=== PATIENT | female | born 1955 | race Caucasian/White ===

== ENCOUNTER 2018-12-31 11:06 | Day surgery (SDC) | payer OTHER, SELFPAY ==
--- NOTE | 2018-12-29 09:12 | PCM.HP.BLA ---
History and Physical Date of Admission: 12/31/18 Vero Redding a 63 year old female who is referred by Dr. Ma?for an opinion regarding colorectal cancer screening. ?My final recommendations will be communicated back to the requesting physician by way of shared Medical Record. The patient denies?a family?history of colon cancer. ?She tells me that she has been putting off the colonoscopy for as long as possible. ? The patient tells me that Dr Kenny Hardy informed her that he had difficulty with placing her dialysis catheter due to extensive adhesions. ?With her medical history and adhesions, I have recommended MAC sedation. ?? ? The patient saw Dr. Ma on 09/05/18. that note has been reviewed and part as follows: The patient has stage 5 kidney failure. She?does peritoneal dialysis daily at night, has occ issues with feeling bloated after but if she has a good BM that typically helps. ?She is following with Dr. Cowart, Soil Conservation Aide. ?Is taking renvela 800 mg with meals and Lasix 60 mg 1-2 times a day as needed. ?Follows monthly with kidney doctor. ? ? The patient was seen by Dr. Flores?for upper endoscopy and colonoscopy 12/12/06 (due to JEAN-PIERRE). ?The procedure report has been reviewed and findings as follows: EGD FINDINGS: HYPOPHARYNX: The hypopharynx appeared normal. ESOPHAGUS: The esophagus appeared normal. GE-JUNCTION: The gastroesophageal junction appeared normal. STOMACH: The mucosa of the antrum appeared erythematous. ?There are no erosions however. ?A single H. Pylori biopsy was obtained from the antrum and placed on PyloriTek strip. The stomach was otherwise normal. DUODENUM: The duodenum appeared normal. ?Random biopsies were taken to verify the integrity of the intestinal villi. ? Colonoscopy ?PROCEDURE: Rectal exam: Normal sphincter tone. ?Small non-bleeding internal hemorrhoids were present. ?No masses. ?No fissures. ? The endoscope was passed with ease under direct visualization to the cecum confirmed by ileocecal valve. ?The quality of the preparation was excellent. ? FINDINGS: ?In the ascending colon there is a small area where the mucosa is slightly erythematous. ?There is no increased friability here. ?This does not appear as a lesion or mass - simply increased erythema on both sides of the lumen. ?Multiple biopsies were obtained. ?In the transverse colon there was also a mild degree of erythema noted but this is very minimal - random biopsies were also taken therefore from the remainder of the colon. ?The colonoscopy was otherwise normal. ? FINAL DIAGNOSIS 1. DUODENUM, BIOPSY (A) - DUODENAL MUCOSA WITH NO DIAGNOSTIC ALTERATIONS; NO EVIDENCE OF CELIAC SPRUE. 2. ASCENDING COLON, BIOPSY (B) - PATCHY CHRONIC ACTIVE COLITIS; RULE OUT ISCHEMIC COLITIS IN THIS PATIENT WITH DIABETES MELLITUS; SEE COMMENT. 3. RANDOM COLON, BIOPSIES (C) - COLONIC MUCOSA WITH NO DIAGNOSTIC ALTERATIONS. MPB/cb 12/14/2006 COMMENT 2. The differential diagnosis for the chronic active colitis also includes idiopathic inflammatory bowel disease as well as infection. ? The patient was prescribed Asacol. ?No follow up appears to have occurred after that. ? ? I have asked the patient to request her labs from the s3b multi sensor operator be sent for review. ? ? ? Presenting complaint: The patient reports seeing a change in bowel habits since starting her dialysis. She relates it to that, or to the binders that she takes with every meal. ?She denies rectal bleeding or abdominal pain. Having a bowel movement usually twice a day. ??She is trying to eat fresh fruits. Uses Miralax. ? The patient reports some dyspepsia when she starts her dialysis, if she eats too late. She lays on her back and side. Her dialysis catheter is on the left. ?She sleeps in a regular bed with the head of the bed flat. ?? She has a history of gastritis. She has a history of anemia. ??Consider EGD. ? ? REVIEW OF SYSTEMS: GENERAL: No unplanned weight loss. RESPIRATORY: Negative for cough, hemoptysis, wheezing, COPD, dyspnea or shortness of breath CARDIOVASCULAR: Negative for chest pain, leg swelling, hypertension, CHF or palpitations GI: The patient states that her appetite has been good. ?She does?get hungry. There has been no?nausea, no?vomiting. She denies?dysphagia and denies?odynophagia. There has sometimes?been indigestion, as reported above without?heartburn. There has not?been regurgitation. Bowel habits have been regular. There has usually not?been diarrhea. There has not?been constipation - using Miralax. The patient denies?rectal bleeding. There has not?been melena. No abdominal pain. WELDING PROCESS SPECIALIST: Negative for abnormal vaginal bleeding, abnormal vaginal discharge. ? PSYCH: Negative for sleep disturbance, mood disorder and recent psychosocial stressors. HEMATOLOGY/LYMPHOLOGY: Anemia of chronic illness. ? ENDOCRINE: Positive for diabetes mellitus on oral agents NEURO: ?No history of headaches, syncope, paralysis, seizures or tremors All other reviewed and negative other than HPI. ? ? PAST MEDICAL HISTORY PAST MEDICAL HISTORY Diagnosis Date ? Acute gastritis without mention of hemorrhage ? ? Anemia of chronic disease ? ? iron ? Breast cancer, left (HCC) ? ? CKD stage 5 secondary to hypertension (HCC) ? ? Essential hypertension, benign ? ? Internal hemorrhoids without mention of complication ? ? Iron deficiency anemia, unspecified ? ? Mild aortic stenosis by prior echocardiogram ? ? Pure hyperglyceridemia ? ? Type II or unspecified type diabetes mellitus without mention of complication, not stated as uncontrolled ? ? PAST SURGICAL HISTORY PAST SURGICAL HISTORY Procedure Laterality Date ? BREAST BIOPSY W/STEREOTACTIC GUIDANCE Left 05/26/2016 ? COLONOSCOPY W/BX ? 12/12/06 ? EGD W/O BRSH SPECIMEN W/BX ? 12/12/06 ? MAMMO STEREOTACTIC CORE BIOPSY LT ? 05/26/16 ? MASTECTOMY, PARTIAL Left 07/26/2016 ? with prior needle localization ? NONE ? ? ? FAMILY HISTORY FAMILY HISTORY Problem Relation Age of Onset ? Heart Father ?PA ? Stroke Father ? ? Diabetes Sister ? ? Hypertension Sister ? ? Breast Cancer Sister 53 ? Cancer Sister ?Uterin cancer--same sister that had breast cancer. This cancer occured about 5 years after taking tamoxifen. ? Osteoporosis Mother ? ? Cancer Other ?paternal cousin- breast ? CURRENT MEDICATIONS ? Current Outpatient Prescriptions: furosemide (LASIX) 40 mg tablet Take 1.5 tablets by mouth twice daily. Disp: 60 tablet Rfl: 11 amLODIPine (NORVASC) 10 mg tablet Take 1 tablet by mouth once daily. Disp: Rfl: pioglitazone (ACTOS) 15 mg tablet Take 1 tablet by mouth once daily. Disp: 30 tablet Rfl: 11 glipiZIDE (GLUCOTROL XL) 10mg 24 hr tablet Take 1 tablet by mouth twice daily. Disp: 60 tablet Rfl: 11 metoprolol succinate ER (TOPROL XL) 50 mg 24 hr tablet Take 1 tablet by mouth once daily. Disp: 30 tablet Rfl: 11 sevelamer carbonate (RENVELA) 800 mg tablet Take 1 tablet by mouth three times daily with meals. Disp: Rfl: spironolactone (ALDACTONE) 50 mg tablet Take 50 mg by mouth once daily. Disp: Rfl: 2 rosuvastatin (CRESTOR) 20 mg tablet Take 1 tablet by mouth daily at bedtime. Disp: 90 tablet Rfl: 3 Insulin [place], Disposable, (BD ULTRA-FINE CEE PEN NEEDLE) 32 gauge x 5/32 ndle Use one needle for each dose. ?1/day. Disp: 50 Each Rfl: 5 blood sugar diagnostic (BLOOD GLUCOSE TEST) test strip Test blood sugar(s) one times daily. ?Dx: Type 2 DM - Controlled E11.9 ?Insulin: No Disp: 50 Strip Rfl: 11 polyethylene glycol 3350 (MIRALAX) 17 gram packet Take 17 g by mouth twice daily. Disp: Rfl: blood sugar diagnostic (ACCU-CHEK HUNTER) test strip Test blood sugar(s) 1 times daily. ?Dx: 250.00. Insulin: No Disp: 100 Strip Rfl: 3 ? No current facility-administered medications for this visit. ? ? SOCIAL HISTORY: Patient is . She has never smoked and?reports her alcohol use as never. ? ? PHYSICAL EXAMINATION: Blood pressure 148/68, pulse 73, height 160 cm (5' 3), weight 77.7 kg (171 lb 3.2 oz). General Appearance: Well appearing, alert, in no acute distress, well-hydrated, well nourished. Skin: Skin color, texture, turgor normal, no suspicious rashes or lesions. Head: Normocephalic, no masses, lesions or abnormalities. Eyes: Anicteric sclera. Neck: Supple, no adenopathy; thyroid symmetric. Lungs: lungs clear to auscultation. No wheezing, rhonchi, rales. Heart: RRR without murmur. Abdomen: Abdomen soft, ballottement noted. Non-tender. Bowel sounds normal. No masses, organomegaly. Extremities: No deformities, edema. Peripheral Pulses: Normal. Neurologic: Gait normal. Sensation grossly intact. ? ? Impression: Colorectal cancer screening ?2)end stage renal disease ?3)reported severe adhesions in abdomen. history of gastritis - occasional indigestion. ? ? Plan: Will check a CBC if we can't get a recent one from her s3b multi sensor operator. This patient will be scheduled for an upper endoscopy and?colonoscopy. She will be?using GoLytely?as the prep. ?We discussed using MAC sedation and she agrees. The preparation, as well as the procedure, has been explained in detail. The risks, benefits, anticipated outcomes and possible complications were mentioned. I explained the procedure in understandable terms and the patient was given printed material concerning the planned procedure. The patient had the opportunity to ask questions concerning the planned procedure. The patient freely consents to the planned procedure. ? The patient is asked to call with any questions for concerns, or should there be any change in health status between now and the scheduled procedure. ? ? I have personally interviewed and examined this patient. I have read the information the TROMBONE SLIDE ASSEMBLER?documented in this encounter. I spent 30?minutes in the visit, with more than 50% of the total [id number] time of the visit in counseling / coordination of care. ? Juana Bynum RN TECHNICAL WRITING LEAD/MGR.CHIEF CONSTRUCTION INSPECTOR
[2018-12-31 11:29] VITALS: BP 151/71; PULSE 71; RESP 16; TEMP 36.8; O2SAT 99; BMI 30.3
[2018-12-31 11:50] LABS: Bedside Glucose 154 mg/dL (70-110)
--- NOTE | 2018-12-31 12:30 | IMM_PTH ---
PATIENT: FRANDY CHAUDHRY LOC: EN U#:[id number] AGE/SX: 63/F ROOM: RE12/31/[address]: Dr. Sadi Hernandez MD : 1955 BED: DIS: 12/31/2018 SPEC #: [id number] RECD: 01/01/19 10:13 STATUS: SULTANA REBenjamin #: [id number] JESSICA: 12/31/18 12:[address]: Sadi Hernandez DEPT: IMMUNOHISTOCHEMISTRY RECD BY: Kelly Ross ENTERED: 01/01/19 10:14 SP TYPE: IMMUNO OTHR DR: Dr. Jayro Ma MD Tissues: A - Stomach, NOS Procedures: H Pylori (initial) PHYSICIAN & INSTITUTION [place] [id number] SPECIMEN INFORMATION: Tissue Source: A - Antrum biopsy Clinical Info: Anemia Specimen Number: [id number] CPT code: 38394 METHODOLOGY: Deparaffinized sections of prefer/formalin-fixed tissue or PAP/DQ stained slides are incubated with monoclonal/polyclonal antibodies/oligonucleotide probes. Localization is made via biotin free immunoperoxidase method. Appropriate controls are performed and reacted as expected. Results on target cell population are indicated in the following table: RESULTS: ANTIBODY / CLONE RESULT Block A H Pylori (polyclonal) negative These tests were developed and their performance characteristics determined by [facility]. They may not have been cleared or approved by the U.S. Food and Drug Administration. The FDA has determined that such clearance or approval is not necessary. INTERPRETATION: A. Antrum biopsy: Negative for Helicobacter pylori organisms. SJ:garry 01/01/19
--- NOTE | 2018-12-31 12:30 | COLBX_PTH ---
PATIENT: FRANDY CHAUDHRY LOC: EN U#:[id number] AGE/SX: 63/F ROOM: RE12/31/[address]: Dr. Sadi Hernandez MD : 1955 BED: DIS: 12/31/2018 SPEC #: [id number] RECD: 12/31/18 14:48 STATUS: SULTANA REBenjamin #: [id number] JESSICA: 12/31/18 12:[address]: Sadi Hernandez DEPT: SURGICAL PATHOLOGY RECD BY: Chad Markham ENTERED: 12/31/18 15:04 SP TYPE: COLON BX OTHR DR: Dr. Jayro Ma MD Tissues: A - Gastric mucous membrane B - Gastric mucous membrane C - Cecum, NOS Procedures: Surgery Specimen Level IV HEADER OPERATION: Colonoscopy, EGD ([facility] [place] PRE-OP DIAGNOSIS: Anemia TISSUE SUBMITTED: A - Antrum biopsy for H. pylori and path, B - GE junction biopsy, C - Biopsy of cecal polyp MICROSCOPIC DIAGNOSIS A. Antral biopsy: Mild gastritis. See microscopic description and comment. B. GE junction, biopsy: Fragments of squamous epithelium, no pathologic diagnosis. C. Cecal polyp, biopsy: Tubular adenoma. SJ:garry 01/01/19 COMMENT A. The results of immunohistochemistry for Helicobacter pylori will be reported separately ([id number]). MICROSCOPIC DESCRIPTION Slides are reviewed. A. The specimen shows fragments of gastric mucosa with chronic inflammatory cell infiltrates in the lamina propria consisting of lymphocytes and plasma cells, consistent with mild chronic gastritis. GROSS DESCRIPTION A - Received in fixative is one container labeled with the patient's name and designated antrum biopsy. The specimen consists of one irregular fragment of light jules soft tissue that measures 0.3 x 0.3 x 0.1 cm. The specimen is totally submitted in one cassette. B - Received in fixative is one container labeled with the patient's name and designated GE junction biopsy. The specimen consists of two irregular fragments of light jules soft tissue that in aggregate measure 0.4 x 0.2 x 0.1 cm. The specimen is totally submitted in one cassette. C - Received in fixative is one container labeled with the patient's name and designated biopsy of cecal polyp. The specimen consists of one irregular fragment of light jules soft tissue that measures 0.4 x 0.3 x 0.1 cm. The specimen is totally submitted in one cassette. / SJ:rg 12/31/18 TC:1 CPT: 51667 x3
[2018-12-31 13:39] VITALS: BP 142/76; BP 151/71; PULSE 61; RESP 16; TEMP 36.1; O2SAT 99
--- NOTE | 2018-12-31 13:40 | OP.ENDO_ITS ---
12/31/2018 Jayro Ma [address] [place] [address] Re : Upper GI endoscopy procedure for Vero Redding Dear Dr. Ma This procedure was performed on Monday, December 31, 2018. My impressions and recommendations are as follows: Impressions : - A single non-bleeding angioectasia in the jejunum. - Normal. - Normal antrum. Biopsied. - Gastritis. - Normal gastroesophageal junction. Biopsied. Recommendations : - Return to nurse practitioner in 1 week. - Continue present medications. My findings are described in the full procedure note, which is enclosed. If I can be of further assistance, please feel free to contact me at Doctor phone number(s): , Work: . Sincerely, Sadi Hernandez MD 12/31/2018 1:40:00 PM This report has been signed electronically.
--- NOTE | 2018-12-31 13:42 | OP.ENDO_ITS ---
12/31/2018 Jayro Ma [address] [place] [address] Re : Colonoscopy procedure for Vero Redding Dear Dr. Ma This procedure was performed on Monday, December 31, 2018. My impressions and recommendations are as follows: Impressions : - One diminutive polyp in the cecum, removed with a cold biopsy forceps. Resected and retrieved. - Diverticulosis in the sigmoid colon and in the ascending colon. - The examination was otherwise normal. - The distal rectum and anal verge are normal on retroflexion view. Recommendations : - Discharge patient to home. - Resume previous diet. - Continue present medications. - Return to nurse practitioner in 5 weeks. - Repeat colonoscopy is recommended. The colonoscopy date will be determined after pathology results from today's exam become available for review. My findings are described in the full procedure note, which is enclosed. If I can be of further assistance, please feel free to contact me at Doctor phone number(s): , Work: . Sincerely, Sadi Hernandez MD 12/31/2018 1:42:17 PM This report has been signed electronically.
[2018-12-31 13:50] VITALS: BP 140/68; BP 151/71; PULSE 61; RESP 16; O2SAT 100
[2018-12-31 13:56] VITALS: BP 151/68; BP 151/71; PULSE 56; RESP 16; TEMP 36.3; O2SAT 100
[2018-12-31 14:16] VITALS: BP 151/71
== END 2018-12-31 14:45 | disposition home or self-care (01) ==
LOC: EN 11:07 → AC 11:09
PROVIDERS: Family Provider Family Medicine; PCP Family Medicine; Referring Provider Surgery; Visit Provider Surgery
PROC: 0DJD8ZZ Inspection of Lower Intestinal Tract, Via Natural or Artificial Opening Endoscopic (ICD-10-PCS; CPT 45378; principal; 2018-12-31 12:25)
DX: Z12.11 Encounter for screening for malignant neoplasm of colon (principal); K29.70 Gastritis, unspecified, without bleeding; K57.30 Diverticulosis of large intestine without perforation or abscess without bleeding; D12.0 Benign neoplasm of cecum; I12.0 Hypertensive chronic kidney disease with stage 5 chronic kidney disease or end stage renal disease; E11.22 Type 2 diabetes mellitus with diabetic chronic kidney disease; N18.6 End stage renal disease; Z99.2 Dependence on renal dialysis; Z85.3 Personal history of malignant neoplasm of breast; I45.10 Unspecified right bundle-branch block
CPT/HCPCS: 43239; 45380; 82962; 88305; 88342; J7120; J2405

== ENCOUNTER 2020-03-05 19:08 | Observation (INO) | payer OTHER, SELFPAY ==
[2020-03-05 19:09] VITALS: BP 176/55; PULSE 88; RESP 16; TEMP 36.7; O2SAT 97; BMI 30.4
--- NOTE | 2020-03-05 19:27 | EKG12_ITS ---
Test Reason : HIGH POTASSIUM Blood Pressure : / mmHG Vent. Rate : 070 BPM Atrial Rate : 070 BPM P-R Int : 160 ms QRS Dur : 090 ms QT Int : 402 ms P-R-T Axes : 066 013 049 degrees QTc Int : 434 ms Normal sinus rhythm Possible Inferior infarct , age undetermined Poor R wave progression Abnormal ECG Confirmed by RUSLAN HITCHCOCK, FRANCISCA ([id number]), video editor IVONNE SCHMIDT ([id number]) on 03/09/2020 2:21:58 PM Referred By: Nate Hill Confirmed By:FRANCISCA MERCER MD
--- NOTE | 2020-03-05 19:28 | ED.DCSUM_ITS ---
History of Present Illness Chief Complaint: Abn Labs Informant: Patient Onset: Today Narrative: Patient presents with elevated potassium on outpatient labs. Patient has a history of diabetes and peritoneal dialysis. She had routine labs done earlier today that revealed a potassium of 6.1. Patient states that she has been feeling fine. No recent change to her dialysate. - Past Medical History (1) Patient on peritoneal dialysis Status: Chronic (2) Diabetes Status: Chronic (3) Hypertension Status: Chronic (4) Anxiety Status: Chronic Past Medical History - Allergies and Home Meds Allergies/Adverse Reactions: Allergies Sulfa (Sulfonamide Antibiotics) Allergy (Verified 03/05/20 19:10) Rash Primary Care Physician: Jayro Ma MD [Primary Care Provider] - Prior records reviewed: Yes Surgical History: no surgical history Lives: Spouse/ Significant Other Smoking Status: Never smoker Review of Systems General: Denies: Chills, Fever Eyes: Denies: Visual changes - bilaterally ENT: Denies: Bilateral ear pain Cardiovascular: Denies: Chest pain Respiratory: Denies: Dyspnea, Cough Gastrointestinal: Denies: Abdominal pain, Nausea, Vomiting, Diarrhea Genitourinary: Denies: Dysuria Musculoskeletal: Denies: Swelling, Extremity Pain Skin: Denies: Rash Neurological: Denies: Headache Hematologic: Denies: Easy bruising, Easy bleeding Allergy: Denies: Uticaria Physical Exam Vital Signs/Narrative: Vital Signs Temp Pulse Resp BP Pulse Ox 03/05/20 19:09 98.0 F 88 16 176/55 H 97 Inital Vital Signs reviewed: Yes General: Well nourished, Well developed Head: Normocephalic ENT: Moist mucous membranes Neck: Supple Cardiovascular: Regular rate, Regular rhythm Respiratory: No distress, CTA bilaterally Abdomen: Soft, Nontender Skin: Normal color Neurological: Alert, Oriented x3 Psychological: Normal affect Diagnostic/Tx/Re-eval Laboratory Results 03/05/20 03/05/20 19:40 19:40 WBC 7.5 RBC 4.34 Hgb 12.7 Hct 39.7 MCV 91.5 MCH 29.3 MCHC 32.0 RDW Std Deviation 47.8 H RDW Coeff of Grayson 14.1 Plt Count 192 MPV 9.4 Immature Gran % (Auto) 0.700 Neut % (Auto) 70.8 H Lymph % (Auto) 14.6 L [place] % (Auto) 9.8 Eos % (Auto) 3.7 Baso % (Auto) 0.4 Absolute Neuts (auto) 5.3 Absolute Lymphs (auto) 1.10 Nucleated RBC % 0 Sodium 133 L Potassium 6.0 H* Chloride 98 Carbon Dioxide 26.0 Anion Gap 9 BUN 80 H Creatinine 9.01 H* Estim Creat Clear Calc 5.08 Est GFR (MDRD) Af Amer 6 L Est GFR (MDRD) Non-Af 5 L BUN/Creatinine Ratio 8.9 L Glucose 262 H Calcium 9.6 - EKG Initial EKG Interpretation: Sinus Rhythm - Sinus at 70 with no acute ischemia. - Medical Decision Making Labs were repeated and potassium is confirmed at 6.0. I discussed with the patient that she would need admission overnight for treatment of her hyperkalemia. She is ordered Kayexalate, insulin, and glucose here. Patient initially was reluctant to be admitted, but after talking with the patient and having apartment house manager come down she did agree. I will speak with Dr. Cowart, her dean of instruction as well as the hospitalist. ED Disposition - Plan for ED Patient: Disposition: Acute Care Hospital [facility] Diagnosis: Hyperkalemia Referrals: Jayro Ma MD [Primary Care Provider] -
[2020-03-05 20:09] LABS: Absolute Neutrophil Count 5.3 X10^3/uL (2.0-7.7); Basophil# 0.03 X10^3/uL; Basophil% 0.4 % (0-1); Eosinophil# 0.28 X10^3/uL; Eosinophils% 3.7 % (0-5); Hematocrit 39.7 % (37-47); Hemoglobin 12.7 g/dL (12.0-15.0); Lymphocyte % 14.6 % (19-41); Mean Corpuscular Hgb 29.3 pg (27.0-32.0); Mean Corpuscular Volume 91.5 fL (81-99); Mean Platelet Vol. 9.4 fl (6.2-12.0); Monocyte# 0.74 X10^3/uL; Monocyte% 9.8 % (0-10); NRBC Flagged by Analyzer 0 % (0-5); Neutrophil # 5.32 X10^3/uL (2.7-7.7); Neutrophil % 70.8 % (47-70); Platelet Count 192 K/mm3 (150-450); RBC Distribution Width CV 14.1 % (11.6-14.6); RBC Distribution Width SD 47.8 fl (35.1-43.9); Red Blood Count 4.34 M/mm3 (4.2-5.4); White Blood Count 7.5 K/mm3 (4.4-11.0)
--- NOTE | 2020-03-05 20:48 | ED.RN ---
notified Dr. Lr of abnormal labs
[2020-03-05 20:50] LABS: Anion Gap 9 (5-15); BUN 80 mg/dL (7-18); BUN/Creat Ratio 8.9 RATIO (10-20); Calcium,Total 9.6 mg/dL (8.5-10.1); Chloride 98 mmol/L (98-107); Creatinine, Serum 9.01 mg/dL (0.55-1.02); EST Glomerular Filtration Rate 5 mL/min (>60); Est Glom Filt Rate - Afr Amer 6 mL/min (>60); Estimated Creatinine Clearance 5.08 ml/min; Glucose 262 mg/dL (74-106); Sodium Level 133 mmol/L (136-145)
[2020-03-05] MEDS: Insulin Lispro 5 UNIT in Syringe 0 ML 3 UNIT IV (21:23)
[2020-03-05] MEDS: Dextrose 50%-Water 25 GM/50 ML DISP.SYRIN IV (21:23)
--- NOTE | 2020-03-05 21:26 | PCM.HP.STD ---
Problem List (1) Hyperkalemia Status: Acute (2) Patient on peritoneal dialysis Status: Chronic (3) Diabetes Status: Chronic (4) Hypertension Status: Chronic (5) Anxiety Status: Chronic (6) End stage renal disease Status: Chronic History of Present Illness Date of Admission: 03/05/20 Chief Complaint: Hyperkalemia on outpatient lab. The patient is a 64 year old F with a significant history of diabetes mellitus; end-stage renal disease on dialysis; who presents to the emergency department with hyperkalemia on routine outpatient lab. Potassium outpatient was 6.1. She denies any symptoms. At the emergency department her potassium was 6.0. Emergent department doctor discussed the case with patient biology internship Dr. Shaw who will follow. Past Medical History Past Medical History (Chronic Problems): Chronic Problems (Last Reviewed 03/05/20 @ 22:[address] Nate Hill MD) Patient on peritoneal dialysis (Chronic) Diabetes (Chronic) Hypertension (Chronic) Anxiety (Chronic) End stage renal disease (Chronic) Medical History: Medical History (Last Reviewed 03/05/20 @ 22:[address] Nate Hill MD) Chronic renal failure, stage 4 (severe) (Acute) N18.4 Anemia D64.9 Anxiety disorder F41.9 Breast cancer C50.919 Diabetes mellitus E11.9 Normal colonoscopy HTN (hypertension) I10 Allergies Sulfa (Sulfonamide Antibiotics) Allergy (Verified 03/05/20 19:10) Rash Home Medications: Ambulatory Orders Medication Instructions Recorded Amlodipine Besylate [Norvasc] 10 mg PO DAILY 09/29/17 Furosemide [Lasix] 40 mg PO DAILY 09/29/17 Pioglitazone [Actos] 30 mg PO DAILY 09/29/17 Rosuvastatin Calcium [Crestor] 20 mg PO DAILY 09/29/17 glipiZIDE XL [Glucotrol Xl] 10 mg PO BID 09/29/17 Sevelamer Carbonate [Renvela] 3 tab PO TID 12/28/18 Spironolactone [Aldactone] 50 mg PO DAILY 12/28/18 Surgical History: Surgical History (Last Reviewed 03/05/20 @ 22:[address] Nate Hill MD) Peritoneal dialysis catheter in place Z99.2 Status post left breast lumpectomy Z98.890 Lives: Spouse/ Significant Other Smoking Status: Never smoker Alcohol: None - *Family History Maternal Family History: Family History (Last Reviewed 03/05/20 @ 22:[address] Nate Hill MD) Father CVA (cerebral vascular accident) Diabetes Heart disease Sister Breast cancer Review of Systems Constitutional: Denies: Chills, Fever, Weight Change HEENT: Denies: Head Aches, Sinus Congestion, Sinus Drainage Cardiovascular: Denies: Chest Pain, Palpitations Respiratory: Denies: Cough, Shortness of breath at rest, Sputum production Gastrointestinal: Denies: Abdominal Pain, Nausea, Vomiting Genitourinary: Denies: Dysuria Musculoskeletal: Denies: Joint Pain, Joint Tenderness Skin: Denies: Rash, Wounds Neurological: Denies: Numbness, Tingling, Focal weakness Psychiatric: Denies: Anxiety, Depression, Homicidal Ideations, Suicidal Ideations Hematologic/ Lymphatic: Denies: Easy Bruising, Easy Bleeding VTE Information - Inpt Only VTE Present on Admission: No VTE Mechan Device Prophylaxis: None VTE Pharm Prophylaxis ordered?: Yes Patient Problems: Active and Suspected Problems (Last Reviewed 03/05/20 @ 22:[address] Nate Hill MD) Hyperkalemia (Acute) - Physical Exam Vitals/I&O's: Vital Signs Temp Pulse Resp BP Pulse Ox 98.0 F 88 16 176/55 H 97 03/05/20 19:09 03/05/20 19:09 03/05/20 19:09 03/05/20 19:09 03/05/20 19:09 Oxygen Delivery Method Room Air Weight: 78.018 kg Body Mass Index (BMI) 30.4 Finger Stick Blood Glucose 233 General: Alert, Oriented x3, Cooperative HEENT: Atraumatic, PERRLA, EOMI, Normocephalic Neck: Supple, No JVD, Negative Carotid Bruits Lungs: Clear to auscultation, Normal air movement, No rhonchi, No wheeze, No rales Cardiovascular: Regular rate, Regular Rhythm, Normal S1, Normal S2, No murmurs Abdomen: Bowel Sounds Present, Soft, Non Tender Extremities: No edema, Capillary Refill Less than 3 Seconds Skin: No rashes, No breakdown Musculoskeletal: No Tenderness to Palpation of Joints or Extremities Neurological: Cranial nerves II-XII grossly intact Psych/Mental Status: Normal Affect, Appropriate Laboratory Results 03/05/20 19:40: WBC 7.5, RBC 4.34, Hgb 12.7, Hct 39.7, MCV 91.5, MCH 29.3, MCHC 32.0, RDW Std Deviation 47.8 H, RDW Coeff of [place] 14.1, Plt Count 192, MPV 9.4, Immature Gran % (Auto) 0.700, Neut % (Auto) 70.8 H, Lymph % (Auto) 14.6 L, [place] % (Auto) 9.8, Eos % (Auto) 3.7, Baso % (Auto) 0.4, Absolute Neuts (auto) 5.3, Absolute Lymphs (auto) 1.10, Nucleated RBC % 0 03/05/20 19:40: Sodium 133 L, Potassium 6.0 H*, Chloride 98, Carbon Dioxide 26.0, Anion Gap 9, BUN 80 H, Creatinine 9.01 H*, Estim Creat Clear Calc 5.08, Est GFR (MDRD) Af Amer 6 L, Est GFR (MDRD) Non-Af 5 L, BUN/Creatinine Ratio 8.9 L, Glucose 262 H, Calcium 9.6 Assessment/Plan All Active Problems (Last Reviewed 03/05/20 @ 22:[address] Nate Hill MD) Hyperkalemia (Acute) Chronic renal failure, stage 4 (severe) (Acute) The patient is a 64 year old F with a significant history of diabetes mellitus; end-stage renal disease on dialysis; diabetes mellitus with hyperkalemia. Hyperkalemia Outpatient potassium of 6.1 and 6.0 at the emergency department. Insulin and dextrose was given at the emergency department. Kayexalate ordered at emergency department. MiraLAX ordered. Nephrology consult. BMP in a.m. End Stage disease on dialysis Likely secondary to hypertensive nephrosclerosis and diabetes mellitus Aldactone and Lasix continued. Low potassium and low phosphate diet. Sevelamer continued. Nephrology consult. Hypertensive urgency Patient blood pressure of 183/66. Continue home blood pressure medication. Add hydralazine as needed. Trend blood pressure and adjust as necessary. Diabetes mellitus with hyperglycemia Hyperglycemia on presentation. Actos and glipizide continued. Accu-Chek QA CHS with correction scale insulin ordered. DVT prophylaxis Subcutaneous heparin. OBSV E&M: 58442 Initial observation care L3
[2020-03-05 21:31] VITALS: BP 183/66; PULSE 75; RESP 18; O2SAT 96
[2020-03-05] MEDS: Sodium Polystyrene Sulfonate 15 GM/60 ML UDC 45 GM PO (21:52)
[2020-03-05 21:56] VITALS: BP 183/66; PULSE 88; RESP 14; TEMP 37; O2SAT 100
[2020-03-05 22:06] VITALS: BP 170/69; PULSE 80; RESP 17; TEMP 36.4; O2SAT 94
[2020-03-05 22:07] VITALS: BMI 31.4
[2020-03-05 22:13] VITALS: BMI 31.4
[2020-03-05 22:15] VITALS: PULSE 77
[2020-03-05] MEDS: Polyethylene Glycol 3350 17 GM PACKET PO (22:51)
[2020-03-05] MEDS: glipiZIDE XL 5 MG Tablet 10 MG PO (22:52)
[2020-03-05] MEDS: Heparin Injection (Vial) 5,000 UNIT/ML VIAL 5000 UNIT SC (22:52)
[2020-03-05 23:10] VITALS: O2SAT 96
[2020-03-06 00:32] VITALS: BP 165/71; PULSE 79; RESP 16; TEMP 36.6; O2SAT 96
[2020-03-06 00:33] VITALS: BP 165/71; PULSE 79
[2020-03-06] MEDS: hydrALAZINE 20 MG/ML Vial 5 MG IV (00:33)
[2020-03-06 03:00] VITALS: PULSE 79
[2020-03-06 05:58] VITALS: BP 159/68; PULSE 78; RESP 16; TEMP 36.9; O2SAT 93
[2020-03-06] MEDS: Heparin Injection (Vial) 5,000 UNIT/ML VIAL 5000 UNIT SC (06:00)
[2020-03-06 06:51] LABS: Bedside Glucose 137 mg/dL (70-110)
[2020-03-06 07:19] LABS: Anion Gap 8 (5-15); BUN 87 mg/dL (7-18); BUN/Creat Ratio 9.8 RATIO (10-20); Calcium,Total 9.2 mg/dL (8.5-10.1); Chloride 101 mmol/L (98-107); Creatinine, Serum 8.88 mg/dL (0.55-1.02); EST Glomerular Filtration Rate 5 mL/min (>60); Est Glom Filt Rate - Afr Amer 6 mL/min (>60); Estimated Creatinine Clearance 5.16 ml/min; Glucose 152 mg/dL (74-106); Potassium 5.2 mmol/L (3.5-5.1); Sodium Level 134 mmol/L (136-145)
[2020-03-06 07:26] VITALS: PULSE 76
[2020-03-06 07:30] VITALS: O2SAT 94
[2020-03-06] MEDS: Pioglitazone Hydrochloride 30 MG Tablet PO (09:51)
[2020-03-06] MEDS: glipiZIDE XL 5 MG Tablet 10 MG PO (09:51)
[2020-03-06] MEDS: SEVELAMER CARBONATE 800 MG TABLET 2400 MG PO (09:51)
[2020-03-06] MEDS: Spironolactone 50 MG Tablet PO (09:52)
[2020-03-06] MEDS: Furosemide 40 MG Tablet PO (09:52)
[2020-03-06] MEDS: amLODIPine 10 MG Tablet PO (09:52)
--- NOTE | 2020-03-06 11:07 | DCINST_ITS ---
- Discharge Diagnoses Current Active Problems: Current Active and Chronic Problems (Last Reviewed 03/05/20 @ 22:[address] Nate Hill MD) Hyperkalemia (Acute) End stage renal disease (Chronic) Reason(s) for Visit for Discharge Instructions: Hyperkalemia You will use the following diet at home:: Renal (restricted protein/sodium) Your food should be the consistency of: Regular Your liquids should be the consistency of: Regular/Thin Discharge Activity: Return to Normal Activity Additional Instructions: Continue to do your peritoneal dialysis. You should follow-up with your study hall supervisor as scheduled. Allergies/Adverse Reactions: Allergies Sulfa (Sulfonamide Antibiotics) Allergy (Verified 03/05/20 19:10) Rash Medications to take at Discharge Amlodipine Besylate [Norvasc] 10 mg PO DAILY 09/29/17 Furosemide [Lasix] 40 mg PO DAILY 09/29/17 Pioglitazone [Actos] 30 mg PO DAILY 09/29/17 Rosuvastatin Calcium [Crestor] 20 mg PO DAILY 09/29/17 glipiZIDE XL [Glucotrol Xl] 10 mg PO BID 09/29/17 Sevelamer Carbonate [Renvela] 3 tab PO TID 12/28/18 Spironolactone [Aldactone] 50 mg PO DAILY 12/28/18 Primary Care Physician: Jayro Ma MD [Primary Care Provider] - Please follow up with your Primary Care Physician in: within 1-2 weeks Test Results: Test results from this visit will be discussed in further detail at your follow- up appointment, if applicable. Proposed Discharge Date: 03/06/20
--- NOTE | 2020-03-06 11:09 | DS.PCM_ITS ---
Discharge Date and Diagnosis Date of Admission: 03/05/20 Date of Discharge: 03/06/20 - Primary Discharge Diagnosis Active and Suspected Problems (Last Reviewed 03/05/20 @ 22:[address] Nate Hill MD) Hyperkalemia (Acute) - Secondary Discharge Diagnosis Chronic Problems (Last Reviewed 03/05/20 @ 22:[address] Nate Hill MD) Patient on peritoneal dialysis (Chronic) Diabetes (Chronic) Hypertension (Chronic) Anxiety (Chronic) End stage renal disease (Chronic) Hospital Course and Treatment Operations: None Procedures: None Summary of Care Provided: The patient is a 64 year old F past medical history of ESRD on peritoneal dialysis who presented with hyperkalemia noticed in the outpatient urine routine labs. Patient potassium was 6.1 in the outpatient and was 6.0 when he came here. Denied any acute complaints. Her vitals were stable. He received Kayexalate in the emergency department and insulin with dextrose also. Repeat potassium the next day was 5.2. Discussed with the patient's primary cutter grinder operator who has been following closely with the patient outpatient. Patient's potassium has reportedly been slightly elevated recently.and recommended discharge. Patient will resume her peritoneal dialysis on the day of discharge. Follow-up as scheduled with your primary cutter grinder operator. Subjective: On the day of discharge, patient was seen and examined. She felt improved. Denied any active complaints. Objective: Physical exam: General: Alert, Oriented x3, Cooperative HEENT: Atraumatic, PERRLA, EOMI, Normocephalic Neck: Supple, No JVD, Negative Carotid Bruits Lungs: Clear to auscultation, Normal air movement, No rhonchi, No wheeze, No rales Cardiovascular: Regular rate, Regular Rhythm, Normal S1, Normal S2, No murmurs Abdomen: Bowel Sounds Present, Soft, Non Tender Extremities: No edema, Capillary Refill Less than 3 Seconds Skin: No rashes, No breakdown Musculoskeletal: No Tenderness to Palpation of Joints or Extremities Neurological: Cranial nerves II-XII grossly intact Psych/Mental Status: Normal Affect, Appropriate - Physical Exam Vitals/I&O's: Vital Signs Temp Pulse Resp BP Pulse Ox 98.5 F 76 16 159/68 H 94 03/06/20 05:58 03/06/20 07:26 03/06/20 05:58 03/06/20 05:58 03/06/20 07:30 Oxygen Delivery Method Room Air Weight: 80.5 kg Body Mass Index (BMI) 31.4 Finger Stick Blood Glucose 233 Intake and Output for Last 24 Hours 03/04/20 03/05/20 03/06/20 23:59 23:59 23:59 Intake Total 75.05 / 75.05 75 / 75 Balance 75.05 / 75.05 75 / 75 Laboratory Results 03/05/20 19:40: WBC 7.5, RBC 4.34, Hgb 12.7, Hct 39.7, MCV 91.5, MCH 29.3, MCHC 32.0, RDW Std Deviation 47.8 H, RDW Coeff of [place] 14.1, Plt Count 192, MPV 9.4, Immature Gran % (Auto) 0.700, Neut % (Auto) 70.8 H, Lymph % (Auto) 14.6 L, [place] % (Auto) 9.8, Eos % (Auto) 3.7, Baso % (Auto) 0.4, Absolute Neuts (auto) 5.3, Absolute Lymphs (auto) 1.10, Nucleated RBC % 0 03/05/20 19:40: Sodium 133 L, Potassium 6.0 H*, Chloride 98, Carbon Dioxide 26.0, Anion Gap 9, BUN 80 H, Creatinine 9.01 H*, Estim Creat Clear Calc 5.08, Est GFR (MDRD) Af Amer 6 L, Est GFR (MDRD) Non-Af 5 L, BUN/Creatinine Ratio 8.9 L, Glucose 262 H, Calcium 9.6 03/06/20 06:15: Sodium 134 L, Potassium 5.2 H, Chloride 101, Carbon Dioxide 25.0, Anion Gap 8, BUN 87 H, Creatinine 8.88 H*, Estim Creat Clear Calc 5.16, Est GFR (MDRD) Af Amer 6 L, Est GFR (MDRD) Non-Af 5 L, BUN/Creatinine Ratio 9.8 L, Glucose 152 H, Calcium 9.2 03/06/20 06:35: POC Glucose 137 H Current Medications Amlodipine Besylate (Norvasc) 10 mg PO DAILY ALANNA Last Admin: 03/06/20 09:52 Dose: 10 mg Documented by: Atorvastatin Calcium (Lipitor) 40 mg PO DAILY@2200 [facility] Dextrose (D50w Syringe) 0 gm IV X1 PRN; Protocol PRN Reason: Hypoglycemia Furosemide (Lasix) 40 mg PO DAILY [facility] Last Admin: 03/06/20 09:52 Dose: 40 mg Documented by: Glipizide (Glucotrol Xl) 10 mg PO BIDCM [facility] Last Admin: 03/06/20 09:51 Dose: 10 mg Documented by: Glucagon () 1 mg IM .X1 PRN PRN Reason: Hypoglycemia Heparin Sodium (Porcine) (Heparin Na) 5,000 unit SC Q8 [facility] Last Admin: 03/06/20 06:00 Dose: 5,000 unit Documented by: Hydralazine HCl (Apresoline Iv) 5 mg IV Q4H PRN PRN PRN Reason: SBP> 160 Last Admin: 03/06/20 00:33 Dose: 5 mg Documented by: Sodium Chloride () 250 mls @ 15 mls/hr IV .[id number] PRN PRN Reason: Saline Flush Sodium Chloride () 250 mls @ 15 mls/hr IV .[id number] PRN PRN Reason: Additional IVPB Infusion Insulin Human Lispro (Humalog Kwikpen (Bkc)) 0 unit SC ACHS [facility]; Protocol Last Admin: 03/06/20 06:52 Dose: Not Given Documented by: Pioglitazone HCl (Actos) 30 mg PO DAILY [facility] Last Admin: 03/06/20 09:51 Dose: 30 mg Documented by: Sevelamer Carbonate (Renvela) 2,400 mg PO TIDCM [facility] Last Admin: 03/06/20 09:51 Dose: 2,400 mg Documented by: Sodium Chloride () 10 - 40 ml IV UD PRN PRN Reason: SALINE FLUSH Spironolactone (Aldactone) 50 mg PO DAILY [facility] Last Admin: 03/06/20 09:52 Dose: 50 mg Documented by: Discharge Diet: Renal Diet Discharge Activity: Return to Normal Activity Home Medications: Medications to take at Discharge Amlodipine Besylate [Norvasc] 10 mg PO DAILY 09/29/17 Furosemide [Lasix] 40 mg PO DAILY 09/29/17 Pioglitazone [Actos] 30 mg PO DAILY 09/29/17 Rosuvastatin Calcium [Crestor] 20 mg PO DAILY 09/29/17 glipiZIDE XL [Glucotrol Xl] 10 mg PO BID 09/29/17 Sevelamer Carbonate [Renvela] 3 tab PO TID 12/28/18 Spironolactone [Aldactone] 50 mg PO DAILY 12/28/18 Primary Care Physician: Jayro Ma MD [Primary Care Provider] - Please follow up with your Primary Care Physician in: within 1-2 weeks Disposition: Home Minutes spent on discharge:: 35 Patient Condition:: Stable Medical Necessity - Tobacco Use Smoking Status: Never smoker Tobacco Use: Non-smoker Meaningful Use Info Meaningful Use Diagnoses (Choose all that apply): None applicable OBSV E&M: 17435 Observation care discharge
[2020-03-06] MEDS: Insulin Lispro 100 UNIT/ML INSULN.PEN SC (11:19)
[2020-03-06 11:21] LABS: Bedside Glucose 196 mg/dL (70-110)
== END 2020-03-06 11:05 | disposition home or self-care (01) ==
LOC: ED 21:25 → PCU 21:42
PROVIDERS: Admitting Provider Hospitalist; Emergency Provider Emergency Medicine; PCP Family Medicine; Referring Provider Hospitalist; Visit Provider Internal Medicine
DX: E87.5 Hyperkalemia (principal); E11.22 Type 2 diabetes mellitus with diabetic chronic kidney disease; I12.0 Hypertensive chronic kidney disease with stage 5 chronic kidney disease or end stage renal disease; N18.6 End stage renal disease; F41.9 Anxiety disorder, unspecified; Z79.899 Other long term (current) drug therapy; Z79.84 Long term (current) use of oral hypoglycemic drugs; Z99.2 Dependence on renal dialysis; I16.0 Hypertensive urgency; E11.65 Type 2 diabetes mellitus with hyperglycemia
CPT/HCPCS: 36415; 80048; 82962; 85025; 93005; 96372; 96374; 96375; 99218; 99285; A4216; G0378

== ENCOUNTER 2020-06-17 10:55 | Day surgery (SDC) | payer MEDICARE, OTHER, SELFPAY ==
--- NOTE | 2020-06-16 16:39 | HP.PCM_ITS ---
History and Physical Date of Admission: 06/17/20 HISTORY AND PHYSICAL ? Vero Redding 1955 ? REFERRING PHYSICIAN: Jayro Ma MD ? CHIEF COMPLAINT: Anemia ? HPI: The patient is a 64 year old female referred for endoscopy. Vero notes anemia and heme positive stool. Patient denies any change in bowel habits, weight changes, or abdominal pain. Denies family history of colon issues. The patient notes no upper GI complaints. Vero has undergone prior endoscopy. ? Patient was referred by Dr. Shaw's office when she was found to have a hemoglobin of 7.3 on recent labs. Another CBC from 05/26/2020 showed hemoglobin 7.6, and repeat within the last few days showed hemoglobin 7.9. She had hemoccult testing which was positive. Denies any fatigue or dizziness. ? Patient's past medical history is significant for chronic kidney disease, hypertension, history of breast cancer, type II diabetes mellitus. ? Denies problems with sedation in the past. ? ? PAST MEDICAL HISTORY ? Acute gastritis without mention of hemorrhage ? ? Anemia of chronic disease ? ? iron ? Breast cancer, left (HCC) ? ? CKD stage 5 secondary to hypertension (HCC) ? ? Essential hypertension, benign ? ? Internal hemorrhoids without mention of complication ? ? Iron deficiency anemia, unspecified ? ? Mild aortic stenosis by prior echocardiogram ? ? Pure hyperglyceridemia ? ? Type II or unspecified type diabetes mellitus without mention of complication, not stated as uncontrolled ? PAST SURGICAL HISTORY ? BREAST BIOPSY W/STEREOTACTIC GUIDANCE Left 05/26/2016 ? COLONOSCOPY W/BX ? 12/12/06 ? EGD W/O [facility] SPECIMEN W/BX ? 12/12/06 ? MAMMO STEREOTACTIC CORE BIOPSY LT ? 05/26/16 ? MASTECTOMY, PARTIAL Left 07/26/2016 ? with prior needle localization ? NONE ? ? ? CURRENT MEDICATIONS ? furosemide (LASIX) 40 mg tablet Take 2 tablets by mouth twice daily. ? blood sugar diagnostic (BLOOD GLUCOSE TEST) test strip Test blood sugar(s) one times daily. Dx: Type 2 DM - Controlled E11.9 Insulin: No ? amLODIPine (NORVASC) 10 mg tablet Take 1 tablet by mouth once daily. ? spironolactone (ALDACTONE) 50 mg tablet Take 1 tablet by mouth once daily. ? pioglitazone (ACTOS) 45 mg tablet Take 1 tablet by mouth once daily. ? rosuvastatin (CRESTOR) 20 mg tablet Take 1 tablet by mouth daily at bedtime. ? glipiZIDE (GLUCOTROL XL) 10mg 24 hr tablet Take 1 tablet by mouth twice daily. ? metoprolol succinate ER (TOPROL XL) 50 mg 24 hr tablet Take 1 tablet by mouth once daily. ? sevelamer carbonate (RENVELA) 800 mg tablet Take 1 tablet by mouth three times daily with meals. ? Insulin Line [place], Disposable, (BD ULTRA-FINE CEE PEN NEEDLE) 32 gauge x ndle Use one needle for each dose. 1/day. ? polyethylene glycol 3350 (MIRALAX) 17 gram packet Take 17 g by mouth twice daily. ? ? ALLERGIES: Sulfa (Sulfonamide Antibiotics) ? PERSONAL HISTORY: SOCIAL HISTORY Social History ?Tobacco Use ? Smoking status: Never Smoker ? Smokeless tobacco: Never Used Substance Use Topics ? Alcohol use: No ? Drug use: No ? FAMILY HISTORY: ? Osteoporosis Mother ? ? Heart Father ? ? OR ? Stroke Father ? ? Diabetes Sister ? ? Hypertension Sister ? ? Breast Cancer Sister 53 ? Cancer Sister ? ? Uterin cancer--same sister that had breast cancer. This cancer occured about 5 years after taking tamoxifen. ? Cancer Other ? ? paternal cousin- breast ? ? REVIEW OF SYMPTOMS: The review of systems data was entered by the nurse and reviewed by me ? Nursing Notes: Roberto Mantilla 06/04/2020 9:05 AM Signed REVIEW OF SYSTEMS: General: The patient NOTES fatigue, denies weight loss, denies weight gain, denies feeling hot, and NOTES feelings of cold. Eyes: The patient denies glaucoma, denies eye injury/surgery, wears glasses or contacts. Ear/Nose/Throat: The patient NOTES allergies, denies hayfever, denies ear infections, and denies bloody noses. Cardiovascular: The patient denies chest pain, denies heart disease, NOTES high blood pressure,denies cardiac stent, denies prior heart attack, denies irregular heart beat, denies high cholesterol, denies poor circulation, denies heart failure, other cardiac issues, denies claudication, denies cold feet, denies peripheral arterial stent. Respiratory: The patient denies tuberculosis, denies pneumonia, denies frequent cough, denies pulmonary embolism, denies shortness of breath, and denies coughing up blood. Gastrointestinal: The patient denies difficulty swallowing, denies acid reflux, denies ulcers, denies vomiting, denies jaundice/hepatitis, denies gallbladder problems, denies black or tarry stools, denies hemorrhoids, denies bleeding from rectum, denies diverticulitis, denies constipation, denies diarrhea, denies loss of stool control, and denies hernias. Kidney/Bladder: The patient denies kidney stones, denies urine infections, and denies bloody urine. Skin: The patient denies a history of skin cancer, denies bleeding/changing moles, and denies a history of skin rash. Neurologic: The patient denies a history of epilepsy/convulsions, denies headaches, denies head/spinal injuries, and denies stroke/TIA. Psychiatric: The patient denies psychiatric medications, denies depression, and denies voices, denies substance abuse. Endocrine: The patient denies thyroid disorders, NOTES diabetes, and denies hormonal problems. Hematologic: The patient NOTES a history of bruising, denies bleeding, and denies anemia, denies blood clots. Infections: The patient denies a history of measles and mumps, denies rheumatic fever, and denies sexually transmitted diseases. Musculoskeletal: The patient denies back pain/injury, denies back problems, denies sciatica, denies knee/foot trouble, denies arthritis, or denies gout. ? ? When was patient's last Mammogram screening? 09-11-2018 ? Last Colonoscopy: 12-12-2006 ? Roberto Mantilla I have confirmed and edited as necessary, the PFSH and ROS obtained by others. ? PHYSICAL EXAMINATION: ? General: The patient is 64 year old female, well nourished, well hydrated in no acute distress. The patient is oriented to time, place, and person. ? VITALS: Blood pressure 160/58, pulse 81, temperature 36.7 ?C (98 ?F), temperature source Temporal, resp. rate 14, height 160 cm (5' 3), weight 80.7 kg (178 lb), SpO2 100 %. Body mass index is 31.53 kg/m?. ? HEENT: Normal cephalic, ataumatic, pupils are equally round, sclera are anicteric, mucous membranes are moist, oropharynx is clear. Neck has no masses, asymmetry or lymphadenopathy. ? Respiratory: Clear to auscultation and percussion. Normal respiratory excursion and pattern. ? Cardiac: Examination is regular rate and rhythm. Normal S1/S2 ? Abdominal exam: Soft, nontender, with no palpable masses. No hepatosplenomegaly. No palpable hernias. ? Extremities: no clubbing, cyanosis or edema. No adenopathy. ? LABORATORY VALUES: As Noted ? RADIOLOGIC STUDIES: As Noted ? IMPRESSION: anemia, recommend upper and lower endoscopy to evaluate for possible GI source of blood loss ? PLAN: I have reviewed my findings with the surgeon. Will plan for upper and lower endoscopy. We discussed the risks and benefits of the planned endoscopy. I have informed the patient that complications can occur including failure to complete the endoscopy and perforation. The patient had the opportunity to ask questions concerning the planned endoscopy. My staff has also explained the procedure to the patient in understandable terms and has given the patient printed material concerning the procedure. The patient freely consents to surgery. ? I plan to use Golytely bowel preparation. Reviewed instructions and importance of good hydration ? Patient instructed to contact PCP for instructions regarding diabetic medication, which may require adjustment during bowel preparation and/or day of procedure ? ? We will plan for Monitored Anesthetic Care. ? Reviewed red flag signs and symptoms such as dark stools, hematemesis, abdominal pain, dizziness or rapid heartbeat for which patient should seek immediate medical attention ? Patient verbalized understanding of all above and agreed with the plan. ? Lisa Rivera PA-C
[2020-06-17] VITALS (7 sets, daily range): BP systolic 106–147; BP diastolic 55–65; PULSE 60–69; RESP 15–16; TEMP 36.2–36.8; O2SAT 99–100; BMI 30.9
[2020-06-17] MEDS: 0.9% Normal Saline 1,000 ML 30 ML IV (11:38)
[2020-06-17 11:45] LABS: Bedside Glucose 94 mg/dL (70-110)
--- NOTE | 2020-06-17 12:00 | IMM_PTH ---
PATIENT: FRANDY CHAUDHRY LOC: EN U#:[id number] AGE/SX: 64/F ROOM: RE06/17/[address]: Dr. Annalee Nixon MD : 1955 BED: DIS: 06/17/2020 SPEC #: [id number] RECD: 06/18/20 09:52 STATUS: SULTANA REQ #: [id number] JESSICA: 06/17/20 12:[address]: Annalee Nixon DEPT: IMMUNOHISTOCHEMISTRY RECD BY: Kelly Ross ENTERED: 06/18/20 09:52 SP TYPE: IMMUNO OTHR DR: Dr. Jayro Ma MD Tissues: Stomach, NOS Procedures: H Pylori (initial) PHYSICIAN & INSTITUTION [place] [id number] SPECIMEN INFORMATION: Tissue Source: Antrum biopsy Clinical Info: Anemia Specimen Number: [id number] CPT code: 53839 METHODOLOGY: Deparaffinized sections of prefer/formalin-fixed tissue or PAP/DQ stained slides are incubated with monoclonal/polyclonal antibodies/oligonucleotide probes. Localization is made via biotin free immunoperoxidase method. Appropriate controls are performed and reacted as expected. Results on target cell population are indicated in the following table: RESULTS: ANTIBODY / CLONE RESULT H Pylori (polyclonal) negative These tests were developed and their performance characteristics determined by [facility]. They may not have been cleared or approved by the U.S. Food and Drug Administration. The FDA has determined that such clearance or approval is not necessary. INTERPRETATION: Antrum biopsy: Negative for Helicobacter pylori organisms. AM:garry 06/19/20
--- NOTE | 2020-06-17 12:00 | EGD_PTH ---
PATIENT: FRANDY CHAUDHRY LOC: EN U#:[id number] AGE/SX: 64/F ROOM: RE06/17/[address]: Dr. Annalee Nixon MD : 1955 BED: DIS: 06/17/2020 SPEC #: [id number] RECD: 06/17/20 13:57 STATUS: SULTANA MALGORZATA #: [id number] JESSICA: 06/17/20 12:[address]: Annalee Nixon DEPT: SURGICAL PATHOLOGY RECD BY: Cheyanne Sainz ENTERED: 06/18/20 09:49 SP TYPE: EGD BIOPSY OTHR DR: Dr. Jayro Ma MD Tissues: Gastric mucous membrane Procedures: Surgery Specimen Level IV HEADER OPERATION: Colonoscopy, EGD ([facility] [place] PRE-OP DIAGNOSIS: Anemia TISSUE SUBMITTED: Biopsy of antrum for H. pylori and path MICROSCOPIC DIAGNOSIS Antrum, biopsy: Mild gastritis. See microscopic description and comment. SJ:garry 06/19/20 COMMENT The results of immunohistochemistry for Helicobacter pylori will be reported separately ([id number]). MICROSCOPIC DESCRIPTION Slides are reviewed. The specimen shows fragments of gastric mucosa with chronic inflammatory cell infiltrates in the lamina propria consisting of lymphocytes and plasma cells, consistent with mild chronic gastritis. GROSS DESCRIPTION Received in fixative is one container labeled with the patient's name and designated biopsy antrum. The specimen consists of multiple irregular fragments of light jules soft tissue that in aggregate measure 0.5 x 0.3 x 0.1 cm. The specimen is totally submitted in one cassette. / SJ:rg 06/18/20 TC:3 CPT: 40876
--- NOTE | 2020-06-17 12:34 | OP.EGD_ITS ---
Patient Name: Vero Redding Procedure Date: 06/17/2020 11:57 AM Date of : 1955 Age: 64 Procedure: Upper GI endoscopy Indications: Iron deficiency anemia Providers: Annalee Nixon MD Referring MD: Jayro Ma Medicines: See the Anesthesia note for documentation of the administered medications Patient Profile: Refer to note in patient chart for documentation of history and physical. Complications: No immediate complications. Procedure: Pre-Anesthesia Assessment: - see anesthesia note After obtaining informed consent, the endoscope was passed under direct vision. Throughout the procedure, the patient's blood pressure, pulse, and oxygen saturations were monitored continuously. The gastroscope was introduced through the mouth, and advanced to the second part of duodenum. The upper GI endoscopy was accomplished without difficulty. The patient tolerated the procedure well. Scope In: 12:08:22 PM Scope Out: 12:13:00 PM Total Procedure Duration Time 0 hours 4 minutes 38 seconds Findings: The first portion of the duodenum and second portion of the duodenum were normal. The entire examined stomach was normal. Biopsies were taken with a cold forceps for histology. Estimated blood loss was minimal. The examined esophagus was normal. Impression: - Normal first portion of the duodenum and second portion of the duodenum. - Normal stomach. Biopsied. - Normal esophagus. Recommendation: - Discharge patient to home (ambulatory). - Resume previous diet. - Continue present medications. - Await pathology results. - My office will telephone with pathology results in 1-2 weeks Procedure Code(s): --- Professional --- 13487, Esophagogastroduodenoscopy, flexible, transoral; with biopsy, single or multiple Diagnosis Code(s): --- Professional --- D50.9, Iron deficiency anemia, unspecified CPT copyright 2017 [employer]. All rights reserved. The codes documented in this report are preliminary and upon driver supervisor review may be revised to meet current compliance requirements. MD Annalee Mak MD 06/17/2020 12:33:29 PM This report has been signed electronically. Number of Addenda: 0 Note Initiated On: 06/17/2020 11:57 AM
--- NOTE | 2020-06-17 12:34 | OP.CCLET_ITS ---
06/17/2020 Jayro Ma [address] [place] [address] Re : Upper GI endoscopy procedure for Vero Redding Dear Dr. Ma This procedure was performed on Wednesday, June 17, 2020. My impressions and recommendations are as follows: Impressions : - Normal first portion of the duodenum and second portion of the duodenum. - Normal stomach. Biopsied. - Normal esophagus. Recommendations : - Discharge patient to home (ambulatory). - Resume previous diet. - Continue present medications. - Await pathology results. - My office will telephone with pathology results in 1-2 weeks My findings are described in the full procedure note, which is enclosed. If I can be of further assistance, please feel free to contact me at Doctor phone number(s): , Work: . Sincerely, MD Annalee Mak MD 06/17/2020 12:33:29 PM This report has been signed electronically.
--- NOTE | 2020-06-17 12:35 | OP.COLON_ITS ---
Patient Name: Vero Redding Procedure Date: 06/17/2020 12:14 PM Date of : 1955 Age: 64 Procedure: Colonoscopy Indications: Iron deficiency anemia Providers: Annalee Nixon MD Referring MD: Jayro Ma Medicines: See the Anesthesia note for documentation of the administered medications Patient Profile: Refer to note in patient chart for documentation of history and physical. Last Colonoscopy: 2018. Complications: No immediate complications. Procedure: Pre-Anesthesia Assessment: - see anesthesia note After I obtained informed consent, the scope was passed under direct vision. Throughout the procedure, the patient's blood pressure, pulse, and oxygen saturations were monitored continuously. The colonoscope was introduced through the anus and advanced to the cecum, identified by the appendiceal orifice, ileocecal valve and palpation. The colonoscopy was performed without difficulty. The patient tolerated the procedure well. The quality of the bowel preparation was adequate. Scope In: 12:16:17 PM Scope Withdrawal Time 0 hours 5 minutes 33 seconds Scope Out: 12:28:03 PM Total Procedure Duration Time 0 hours 11 minutes 46 seconds Findings: The perianal and digital rectal examinations were normal. Multiple small and large-mouthed diverticula were found in the sigmoid colon. Non-bleeding internal hemorrhoids were found. Impression: - Diverticulosis in the sigmoid colon. - Non-bleeding internal hemorrhoids. - No specimens collected. Recommendation: - Repeat colonoscopy in 10 years for screening purposes. - - my office will set up virtual visit with Lisa for you - Continue present medications. Procedure Code(s): --- Professional --- 30956, Colonoscopy, flexible; diagnostic, including collection of specimen(s) by brushing or washing, when performed (separate procedure) Diagnosis Code(s): --- Professional --- K64.8, Other hemorrhoids D50.9, Iron deficiency anemia, unspecified K57.30, Diverticulosis of large intestine without perforation or abscess without bleeding CPT copyright 2017 [employer]. All rights reserved. The codes documented in this report are preliminary and upon medical record coder review may be revised to meet current compliance requirements. MD Annalee Mak MD 06/17/2020 12:35:30 PM This report has been signed electronically. Number of Addenda: 0 Note Initiated On: 06/17/2020 12:14 PM
--- NOTE | 2020-06-17 12:36 | OP.CCLET_ITS ---
06/17/2020 Jayro Ma [address] [place] [address] Re : Colonoscopy procedure for Vero Redding Dear Dr. Ma This procedure was performed on Wednesday, June 17, 2020. My impressions and recommendations are as follows: Impressions : - Diverticulosis in the sigmoid colon. - Non-bleeding internal hemorrhoids. - No specimens collected. Recommendations : - Repeat colonoscopy in 10 years for screening purposes. - - my office will set up virtual visit with Lisa Rivera for you - Continue present medications. My findings are described in the full procedure note, which is enclosed. If I can be of further assistance, please feel free to contact me at Doctor phone number(s): , Work: . Sincerely, MD Annalee Mak MD 06/17/2020 12:35:30 PM This report has been signed electronically.
== END 2020-06-17 13:34 | disposition home or self-care (01) ==
LOC: EN 10:59 → AC 11:00
PROVIDERS: Anesthesiology; PCP Family Medicine; Referring Provider Surgery; Visit Provider Surgery
PROC: 0DJD8ZZ Inspection of Lower Intestinal Tract, Via Natural or Artificial Opening Endoscopic (ICD-10-PCS; CPT 45378; principal; 2020-06-17 11:55)
DX: K29.70 Gastritis, unspecified, without bleeding (principal); K57.30 Diverticulosis of large intestine without perforation or abscess without bleeding; K64.8 Other hemorrhoids; D63.1 Anemia in chronic kidney disease; Z11.59 Encounter for screening for other viral diseases; D50.9 Iron deficiency anemia, unspecified; E11.22 Type 2 diabetes mellitus with diabetic chronic kidney disease; I12.0 Hypertensive chronic kidney disease with stage 5 chronic kidney disease or end stage renal disease; N18.5 Chronic kidney disease, stage 5; Z99.2 Dependence on renal dialysis; I35.0 Nonrheumatic aortic (valve) stenosis; E78.1 Pure hyperglyceridemia; E78.00 Pure hypercholesterolemia, unspecified; Z79.899 Other long term (current) drug therapy; Z79.84 Long term (current) use of oral hypoglycemic drugs; Z85.3 Personal history of malignant neoplasm of breast; Z92.3 Personal history of irradiation
CPT/HCPCS: 43239; 45378; 82962; 87635; 88305; 88342; 94799; J7030; J7050; J2405; U0003

== ENCOUNTER 2021-01-12 10:54 | Outpatient (RCR) | payer MEDICARE, OTHER, SELFPAY ==
[2020-06-17 11:28] VITALS: BMI 30.9
[2021-01-12] MEDS: COVID-19 VACC, MRNA(PFIZER)/PF 30 MCG/0.3 ML SYRINGE IM (07:20)
[2021-02-02] MEDS: COVID-19 VACC, MRNA(PFIZER)/PF 30 MCG/0.3 ML SYRINGE IM (07:08)
== END 2021-04-13 23:59 ==
LOC: IMMUN 10:54
PROVIDERS: PCP Family Medicine; Visit Provider Family Medicine
DX: Z23 Encounter for immunization (principal)
CPT/HCPCS: 0001A; 0002A; 91300

== ENCOUNTER → 2021-04-13 09:51 | Outpatient (CLI) | payer MEDICARE, OTHER, SELFPAY ==
[2020-06-17 11:28] VITALS: BMI 30.9
--- NOTE | 2021-04-13 10:01 | VDUE_ITS ---
Reason For Study: CKD 4, Pre op testing Right Arm Left Arm Right Cephalic Vein at the wrist measures Left Cephalic Vein at the wrist measures 0.25 x 0.23 cm. 0.15 x 0.16 cm. Right Cephalic Vein in the forearm measures Left Cephalic Vein in the forearm measures 0.23 x 0.24 cm. 0.21 x 0.21 cm. Right Cephalic Vein below antecub measures Left Cephalic Vein below antecub measures 0.25 x 0.25 cm. 0.25 x 0.29 cm. Right Cephalic Vein above antecub measures Left Cephalic Vein above antecub measures 0.37 x 0.38 cm. 0.27 x 0.29 cm. Right Cephalic Vein mid bicep measures 0.30 Left Cephalic Vein at mid bicep measures x 0.35 cm. 0.19 x 0.18 cm. Right Cephalic Vein at the shoulder measures Left Cephalic Vein at the shoulder measures 0.47 x 0.43 cm. 0.21 x 0.24 cm. Right Basilic Vein at the origin measures Basilic vein at origin measures 0.32 x 0.31 0.38 x 0.41 cm. cm. Right Basilic Vein mid bicep measures 0.27 x Basilic vein at bicep measures 0.23 x 0.21 0.26 cm. cm. Right Basilic Vein above antecub measures Basilic vein above antecub measures 0.16 x 0.33 x 0.35 cm. 0.16 cm. Rt Brachial artery 1 measures 0.34 x 0.31 cm Left Brachial artery measures 0.31 x 0.33 cm with a velocity of 93.5 cm/sec. with a velocity of 86 cm/sec. Rt Brachial artery 2 measures 0.21 x 0.23 cm Left Radial artery measures 0.11 x 0.13 cm with a velocity of 56.9 cm/sec. with a velocity of 76.9 cm/sec. Right Radial artery measures 0.14 x 0.15 cm with a velocity of 87.9 cm/sec. VL/Saphenous Vein Mapping, Bilat Interpretation Summary Patent and compressible bilateral upper extremity cephalic and basilic veins wi th dimensions as noted. Small bilateral radial arteries. Normal diameter and flow bilateral brachial arteries. Ordering Physician: Kenny Hardy Referring Physician: MD Francesca Jayro Performed By: Abbie Brooke RVT and Student ?
== END ==
PROVIDERS: PCP Family Medicine; Referring Provider Surgery; Visit Provider Surgery
DX: Z01.818 Encounter for other preprocedural examination (principal); N18.6 End stage renal disease
CPT/HCPCS: 93970; 93985

== ENCOUNTER 2021-05-06 09:07 | Day surgery (SDC) | payer MEDICARE, OTHER, SELFPAY ==
[2021-04-29 09:46] VITALS: BMI 30.9
[2021-05-05 11:27] LABS: Hematocrit 24.3 % (37-47); Hemoglobin 7.5 g/dL (12.0-15.0); Mean Corp Hgb Conc 30.9 g/dL (32-36); Mean Corpuscular Hgb 30.1 pg (27.0-32.0); Mean Corpuscular Volume 97.6 fL (81-99); Platelet Count 229 K/mm3 (150-450); RBC Distribution Width CV 17.8 % (11.6-14.6); RBC Distribution Width SD 62.7 fl (35.1-43.9); Red Blood Count 2.49 M/mm3 (4.2-5.4); White Blood Count 8.1 K/mm3 (4.4-11.0)
[2021-05-05 12:01] LABS: Anion Gap 12 (5-15); BUN 61 mg/dL (7-18); BUN/Creat Ratio 5.8 RATIO (10-20); Calcium,Total 9.4 mg/dL (8.5-10.1); Chloride 93 mmol/L (98-107); EST Glomerular Filtration Rate 4 mL/min (>60); Est Glom Filt Rate - Afr Amer 5 mL/min (>60); Glucose 224 mg/dL (74-106); Potassium 3.8 mmol/L (3.5-5.1); Sodium Level 132 mmol/L (136-145)
--- NOTE | 2021-05-05 16:39 | SUR.PREOP ---
anesethesia aware of lab results of cbc and bmp
[2021-05-06 09:41] VITALS: BP 95/54; PULSE 81; RESP 67; TEMP 37.1; O2SAT 96; BMI 28.8
[2021-05-06 09:55] LABS: Bedside Glucose 185 mg/dL (70-110)
--- NOTE | 2021-05-06 10:51 | HP.PCM_ITS ---
History and Physical Date of Admission: 05/06/21 Intake Visit Reasons: AVF CRE[place] 04[place]13 [facility] [place] Chief Complaint: hyperkalemia DME Vendor: fistula creation Is patient in pain?: No Allergies Sulfa (Sulfonamide Antibiotics) Allergy (Verified 04/29/21 09:47) Rash Medications amlodipine 10 mg PO DAILY 09/29/17 [History Confirmed 04/29/21] furosemide 40 mg PO BID 09/29/17 [History Confirmed 04/29/21] glipizide 10 mg PO BID 09/29/17 [History Confirmed 04/29/21] pioglitazone 45 mg PO DAILY 09/29/17 [History Confirmed 04/29/21] rosuvastatin 20 mg PO DAILY 09/29/17 [History Confirmed 04/29/21] sevelamer carbonate [Renvela] 4 tab PO TID 12/28/18 [History Confirmed 04/29/21] spironolactone 50 mg PO DAILY 12/28/18 [History Confirmed 04/29/21] polyethylene glycol 3350 17 g PO DAILY 06/10/20 [History Confirmed 04/29/21] Is last menstrual period known: No Post menopausal: Yes Patient : No COUNT INCLUDES THE [facility] Medical History (Updated 04/29/21 @ 10:[address] Kenny Hardy MD) Anemia Anxiety disorder Breast cancer Chronic renal failure, stage 4 (severe) Diabetes mellitus HTN (hypertension) Normal colonoscopy Pre-op testing Surgical History (Updated 04/29/21 @ 09:46 by Heena Sharpe) Peritoneal dialysis catheter in place (~2017) Status post left breast lumpectomy (~2017) Family History Father CVA (cerebral vascular accident) Diabetes Heart disease Sister Breast cancer Social History Smoking Status: Never smoker HPI HPI HPI: FRANDY CHAUDHRY, is a 65 F who presents to the office today for surgical consultation regarding chronic renal failure in need of creation of arteriovenous hemodialysis access. As of March 06, 2020 BUN was 87 and creatinine 8.88 with an estimated creatinine clearance of 5.16 mm/min. The patient is referred by and a written copy of my surgical consult recommendations will return to him. The parent Larry is currently managed with peritoneal dialysis. I placed those catheters for her October 11, 2017. She is having problems with fibrosis. She is having to instill dextran to keep them patent. Apparently also intermittent heparin treatment. She is on the renal transplant list. She has received 3 phone calls but none of them appropriate for her. She has a left arm dominant. As noted below she had bilateral upper extremity vein mapping. She has had a personal history of DCIS of the left breast. We have operative notes reflecting July 26, [address] Mahogany Hernandez at [facility] did a left breast needle localization partial mastectomy shave margins taken from the lumpectomy Cavity at [facility]. It would appear that a axillary sentinel node biopsy was not performed at that time. April 13, 2021 Reason For Study: CKD 4, Pre op testing Right Arm Left Arm Right Cephalic Vein at the wrist measures Left Cephalic Vein at the wrist measures 0.25 x 0.23 cm. 0.15 x 0.16 cm. Right Cephalic Vein in the forearm measures Left Cephalic Vein in the forearm measures 0.23 x 0.24 cm. 0.21 x 0.21 cm. Right Cephalic Vein below antecub measures Left Cephalic Vein below antecub measures 0.25 x 0.25 cm. 0.25 x 0.29 cm. Right Cephalic Vein above antecub measures Left Cephalic Vein above antecub measures 0.37 x 0.38 cm. 0.27 x 0.29 cm. Right Cephalic Vein mid bicep measures 0.30 Left Cephalic Vein at mid bicep measures x 0.35 cm. 0.19 x 0.18 cm. Right Cephalic Vein at the shoulder measures Left Cephalic Vein at the shoulder measures 0.47 x 0.43 cm. 0.21 x 0.24 cm. Right Basilic Vein at the origin measures Basilic vein at origin measures 0.32 x 0.31 0.38 x 0.41 cm. cm. Right Basilic Vein mid bicep measures 0.27 x Basilic vein at bicep measures 0.23 x 0.21 0.26 cm. cm. Right Basilic Vein above antecub measures Basilic vein above antecub measures 0.16 x 0.33 x 0.35 cm. 0.16 cm. Rt Brachial artery 1 measures 0.34 x 0.31 cm Left Brachial artery measures 0.31 x 0.33 cm with a velocity of 93.5 cm/sec. with a velocity of 86 cm/sec. Rt Brachial artery 2 measures 0.21 x 0.23 cm Left Radial artery measures 0.11 x 0.13 cm with a velocity of 56.9 cm/sec. with a velocity of 76.9 cm/sec. Right Radial artery measures 0.14 x 0.15 cm with a velocity of 87.9 cm/sec. VL/Saphenous Vein Mapping, Bilat Interpretation Summary Patent and compressible bilateral upper extremity cephalic and basilic veins with dimensions as noted. Small bilateral radial arteries. Normal diameter and flow bilateral brachial arteries. Ordering Physician: Kenny Hardy Referring Physician: MD Francesca Jayro Performed By: Abbie Brooke RVT and Student General General: Yes fatigue and breast cancer; No weight change, appetite, colon cancer or weakness HEENT HEENT: No difficulty swallowing, eye injury, eye surgery, swollen glands or hoarseness Endo Endocrine: Yes diabetes mellitus; No thyroid disease, thyroid cancer, Hair loss, heat intolerance or cold intolerance Musc Musculoskeletal: No back problems, arthritis, rheumatoid arthritis, gout or joint pain Cardio Cardiovascular: No murmur, pacemaker, heart disease, atrial fibrillation, high blood pressure, heart attack, heart stent, palpitations, shortness of breat with exertion or chest pain Psych Psychiatric: No depression, anxiety or hearing voices Resp Respiratory: Yes shortness of breath, Yes sleep apnea, Yes cough, No COPD, No asthma, No emphysema and No wheezing Gastro Gastrointestinal: No abdominal pain, No nausea or vomiting, No diarrhea, No constipation, No blood in stool, No acid reflux, No hemorrhoids, No ulcers, No gallbladder problem and No black,tarry stools Davis Hematologic: No blood thinners, No blood disorders, No bleeding, Yes anemia and No blood clots Neuro Neurologic: No weakness Exam Const General: cooperative, healthy appearing and comfortable Nutritional Appearance: average body habitus Orientation: alert and awake [facility] Head: normal to inspection Eyes General: appearance normal, both eyes and all related structures Resp Effort & Inspection: normal respiratory effort Auscultation: clear to auscultation bilaterally Cardio Rate: regular rate Rhythm: regular rhythm GI Palpation: soft and no hepatosplenomegaly Auscultation: normal bowel sounds Skin General: no rashes or lesions noted Neuro Cognition: normal cognition Extrem Other: Right upper extremity: Radial pulse 2+. Ulnar pulse 2+. Appropriate Ted test. Ultrasound inspection of the cephalic vein suggests that it is marginal throughout the forearm. The right upper arm it certainly is larger but deeper in position. Psych Affect: normal affect COVID (Procedure Consent) Procedure Criteria Procedure Criteria: Yes Elective The surgeon/proceduralist and patient have discussed in detail the risk of exposure to and/or potential harm posed by the COVID-19 virus with having a surgery/procedure at this time versus the risk of delaying the surgery/procedure. It is not possible to know either the risk of delaying the surgery or procedure or chance of getting an infection with perfect accuracy, but a joint decision was made between the patient and the surgeon/proceduralist to proceed at this time with the scheduled surgery/procedure as indicated on the consent form. Assessment and Plan Assessment and Plan (1) Problem with dialysis access: Status: Acute Qualifiers: Encounter type: initial encounter Qualified Code(s): T82.898A - Other specified complication of vascular prosthetic devices, implants and grafts, initial encounter Plan - Dr. Kenny Hardy MD: 65-year-old female. She is on peritoneal dialysis. The peritoneal catheters are starting to fibrosis. She is on a renal transplant list from [facility]. She is placing heparin and dextran solution into her abdomen. She is left arm dominant. I propose a right forearm radiocephalic arteriovenous hemodialysis fistula creation. The artery and vein are borderline however her left forearm cephalic vein is quite diminutive and I do not want to exclude her right forearm from a future opportunity. She is aware that this may not be successful and that we might have to convert to an upper arm procedure. The upper arm cephalic vein there was more deeply placed and if that procedure eventuate that vein would need to be transposed. She has had an opportunity to ask and have questions answered. We will schedule and expedite her care. She is aware that there are no guarantees of success. Copy: Dr. Colin Hardy M.D., F.A.C.S. I have re-examined the patient. There are no clinical changes since date of exam.
[2021-05-06] MEDS: Bupivacaine Mpf 0.5% 30 ML VIAL (11:27)
[2021-05-06] MEDS: Heparin Injection (Vial) 5,000 UNIT/ML VIAL 5000 UNIT (11:27)
[2021-05-06] MEDS: Lidocaine 1% (30 ml sdv) 30 ML Vial (11:27)
--- NOTE | 2021-05-06 12:34 | PCM.DC ---
Discharge Instructions Diet Discharge Diet: Renal Diet Activity Discharge Activity: May Not Drive (for 2-3 days or while taking narcotic pain medications.), May Shower and May Take a Tub Bath (in 5 days.) Lifting Restrictions: 5 pounds Keep extremity elevated above heart level: - (Keep arm elevated above the heart level for 3 days.) Dressing / Incision Call your doctor if your incision/area has: Continuous Slow Oozing, Sudden Increased Bleeding (apply pressure and call your doctor.), Increased Pain/ Swelling, Increased Redness and Foul Smelling Discharge Call your doctor if you observe: Fever of 101 or Higher Suture Line Care: Avoid Pulling/Pushing and Avoid Pinching/Bending Cleanse incision/area with: Keep Dressing Clean & Dry Additional Dressing/Incision Instructions:: Change or remove dressing in one day. May protect with a gauze bandaid. Follow Up Care Please Follow Up With: Kenny Hardy MD When: Call [phone] to make an appointment for suture removal and follow up in 1 week. Test Results: Test results from this visit will be discussed in further detail at your follow-up appointment, if applicable. Discharge Plan Admission Primary Reason for Your Visit: Creation of arteriovenous fistula Attending Provider: Kenny Hardy Primary Care Provider: Jayro Ma Discharge Orders/Prescriptions Prescriptions: Continued furosemide 40 MG tablet 40 mg PO BID RF: 0 glipizide 5 MG tablet 10 mg PO BID RF: 0 rosuvastatin 20 MG tablet 20 mg PO DAILY RF: 0 sevelamer carbonate [Renvela] 800 MG tablet 4 tab PO TID RF: 0 polyethylene glycol 3350 17 GM packet 17 g PO PRN PRN (Reason: STOOL SOFTENER) RF: 0 Lantus Solostar U-100 Insulin 100 unit/mL (3 mL) insulin pen 20 unit SUBCUT QHS RF: 0 Velphoro 500 mg tablet,chewable 500 mg PO TID RF: 0 Referrals / Follow Up: Jayro Ma MD [Primary Care Provider] - Disposition Disposition (needs filled in before D/C Order can be placed): Home, Self Care
--- NOTE | 2021-05-06 12:35 | OP.PCM_ITS ---
Problems Associated Problem List Diagnoses (1) Problem with dialysis access: Report of Operation Date of Procedure: 05/06/21 Pre-Operative Diagnosis: Failing peritoneal dialysis catheters Post-Operative Diagnosis: Same Surgery/Procedure Performed:: Right forearm radial to cephalic arteriovenous hemodialysis fistula creation Description of Surgical Findings:: Timeout and informed consent was obtained. 65-year-old female was taken to the operating placement table underwent monitored anesthesia care. Clean procedure no antibiotics required. The right forearm was sterilely prepped and draped. Ultrasound had been performed to map out the course of the cephalic vein. Admittedly the radial artery cephalic vein quite on the small side for creation of a fistula. 1% lidocaine mixed 50-50 with 0.5% Marcaine was utilized as a local anesthetic and a total of 16 cc was used. Local was instilled and oblique incision was made in the radial aspect of the right wrist sharp and blunt dissection was used to identify the cephalic vein it was dissected distally to a branch point. It was inked marked. Then sharp and blunt dissection used to identify the radial artery. The radial a rtery quite small. Patient received 7000 units of heparin. The cephalic vein was secured distally with 2 hemoclips and then at that branch point it was spatulated. It was irrigated. Peripheral vascular clamps were placed on the radial artery a 11 blade was used to make an arteriotomy which was extended with Patterson scissors. A end-to-side venous to arterial anastomosis was created with a running 7-0 Prolene. This appeared to be nicely intact. There was immediately good flow. There is some slight kinking of the fistula so I simply used a 7-0 Prolene to assist with positioning the fistula in a nice curvilinear position. There was good Doppler flow. I did some subcutaneous dissection an attempt to make the fistula more superficial. Subdermal tissues approximated up to 3-0 Vicryl. Skin edges approximated running septic or 4 Monocryl. Steri-Strips Telfa tape dressings applied. Sponge and instrument and needle counts were reported to certainly be correct. The hand was viable at the completion nice and warm. But the patient also appeared to be flowing. She was taken to the recovery area in satisfactory addition without apparent complication. Kenny Hardy M.D., F.A.C.S. Surgeon: Kenny Hardy Type of Anesthesia: Local MAC Anesthesiologist: Kirill Garay
[2021-05-06 12:43] VITALS: BP 87/59; BP 95/54; PULSE 77; RESP 16; TEMP 36.1; O2SAT 100
[2021-05-06 12:50] VITALS: BP 94/61; BP 95/54; PULSE 78; RESP 16; O2SAT 100
[2021-05-06 12:59] VITALS: BP 95/54; BP 99/58; PULSE 82; RESP 16; O2SAT 100
[2021-05-06 13:00] VITALS: BP 95/54; BP 97/72; PULSE 82; RESP 16; TEMP 36.2; O2SAT 98
[2021-05-06 13:48] VITALS: BP 95/54; BP 96/68; PULSE 76; RESP 16; TEMP 36.2; O2SAT 99
== END 2021-05-06 14:03 | disposition home or self-care (01) ==
LOC: SDC 09:07 → AC 09:07
PROVIDERS: PCP Family Medicine; Referring Provider Surgery; Visit Provider Surgery
PROC: (CPT 36821; principal; 2021-05-06 10:45)
DX: T82.898A Other specified complication of vascular prosthetic devices, implants and grafts, initial encounter (principal); I12.9 Hypertensive chronic kidney disease with stage 1 through stage 4 chronic kidney disease, or unspecified chronic kidney disease; E11.22 Type 2 diabetes mellitus with diabetic chronic kidney disease; N18.4 Chronic kidney disease, stage 4 (severe); Z76.82 Awaiting organ transplant status; Z99.2 Dependence on renal dialysis; Z78.0 Asymptomatic menopausal state; Z79.4 Long term (current) use of insulin; Z79.84 Long term (current) use of oral hypoglycemic drugs
CPT/HCPCS: 36821; 36415; 80048; 82962; 85027; 86850; 86900; 86901; J7040; J7120

== ENCOUNTER → 2021-05-24 08:48 | Outpatient (CLI) | payer MEDICARE, OTHER, SELFPAY ==
[2021-05-24 06:02] VITALS: BMI 29.1
[2021-05-24 09:00] LABS: Absolute Lymphocyte Count 0.92 X10^3/uL (0.83-4.51); Absolute Neutrophil Count 5.8 X10^3/uL (2.0-7.7); Basophil# 0.04 X10^3/uL; Basophil% 0.5 % (0-1); Eosinophil# 0.19 X10^3/uL; Eosinophils% 2.3 % (0-5); Hematocrit 27.7 % (37-47); Hemoglobin 8.4 g/dL (12.0-15.0); Lymphocyte # 0.92 X10^3/ul (0.83-4.51); Lymphocyte % 11.3 % (19-41); Mean Corp Hgb Conc 30.3 g/dL (32-36); Mean Corpuscular Hgb 29.9 pg (27.0-32.0); Mean Corpuscular Volume 98.6 fL (81-99); Mean Platelet Vol. 9.1 fl (6.2-12.0); Monocyte% 12.3 % (0-10); NRBC Flagged by Analyzer 0 % (0-5); Neutrophil # 5.84 X10^3/uL (2.7-7.7); Neutrophil % 72.1 % (47-70); Platelet Count 222 K/mm3 (150-450); RBC Distribution Width CV 17.2 % (11.6-14.6); RBC Distribution Width SD 62.1 fl (35.1-43.9); Red Blood Count 2.81 M/mm3 (4.2-5.4); White Blood Count 8.1 K/mm3 (4.4-11.0)
[2021-05-24 09:16] LABS: Anion Gap 10 (5-15); BUN 48 mg/dL (7-18); BUN/Creat Ratio 4.8 RATIO (10-20); Calcium,Total 9.5 mg/dL (8.5-10.1); Chloride 95 mmol/L (98-107); EST Glomerular Filtration Rate 4 mL/min (>60); Est Glom Filt Rate - Afr Amer 5 mL/min (>60); Glucose 231 mg/dL (74-106); Potassium 3.5 mmol/L (3.5-5.1); Sodium Level 133 mmol/L (136-145)
== END ==
PROVIDERS: PCP Family Medicine; Referring Provider Physician Assistant; Visit Provider Physician Assistant
DX: T82.898A Other specified complication of vascular prosthetic devices, implants and grafts, initial encounter (principal); N18.4 Chronic kidney disease, stage 4 (severe)
CPT/HCPCS: 36415; 80048; 85025